=== PATIENT | male | born 1945 | race Caucasian/White ===

== ENCOUNTER → 2017-08-29 | Outpatient (CLI) | payer BC | LOC: M.RAD 14:55 | DX: K59.00 Constipation, unspecified (principal) ==

== ENCOUNTER → 2019-12-22 | Outpatient (CLI) | payer BC | LOC: M.ULTRA 10:30 | PROVIDERS: ATTEND Nurse Practitioner Family | DX: I65.22 Occlusion and stenosis of left carotid artery (principal) ==